=== PATIENT | male | born 1975 | race Caucasian/White ===

== ENCOUNTER 2020-12-21 13:59 | Inpatient (IN) | payer OTHER ==
[~2020-12-21] VITALS: Ht 175.3 cm; Wt 65.4 kg
[~2020-12-21 13:59] MED LIST: IBUP400
[2020-12-21 14:27] LABS: BASOPHILS ABSOLUTE AUTO 0.04 K/mm3 (0.00-0.23); BASOPHILS PERCENT AUTO 1 % (0-2); EOSINOPHILS PERCENT AUTO 2 % (0-6); Hematocrit 35.5 % (37.0-53.0); Hemoglobin 11.6 g/dL (13.5-17.5); IMMATURE GRAN ABSOLUTE AUTO 0.03 K/mm3 (0.00-0.10); IMMATURE GRAN PERCENT AUTO 1 % (0-1); LYMPHOCYTES ABSOLUTE AUTO 1.57 K/mm3 (0.84-5.20); LYMPHOCYTES PERCENT AUTO 27 % (21-46); MONOCYTES ABSOLUTE AUTO 0.64 K/mm3 (0.16-1.47); MONOCYTES PERCENT AUTO 11 % (4-13); Mean Corpuscular HGB Conc 32.7 g/dL (31.5-36.5); Mean Corpuscular Volume 95 fL (80-100); Mean Platelet Volume 11.3 fL (9.1-12.4); NEUTROPHILS ABSOLUTE AUTO 3.55 K/mm3 (1.96-9.15); NEUTROPHILS PERCENT AUTO 60 % (41-73); Platelet Count 157 K/mm3 (150-400); RDW Coefficient Variation 12.9 % (11.7-14.2); RDW Standard Deviation 45.2 fL (35.1-46.3); Red Blood Cell Count 3.74 M/mm3 (4.30-5.90); White Blood Cell Count 5.93 K/mm3 (4.00-11.30)
[2020-12-21 14:57] LABS: Alanine Aminotransfer (ALT/SGP 77 U/L (12-78); Albumin, Blood 3.1 g/dL (3.4-5.0); Albumin/Globulin Ratio 0.6 (0.8-1.8); Alk Phos 131 U/L (50-136); Anion Gap 11 mmol/L (6-16); Aspartate Aminotrans (AST/SGOT 118 U/L (12-37); Blood Urea Nitrogen 16 mg/dL (8-24); Bun/Creatinine Ratio 23.6 (12.0-20.0); CO2, Blood 21 mmol/L (21-32); Calcium, Blood 9.8 mg/dL (8.5-10.1); Chloride, Blood 100 mmol/L (98-108); Creatinine, Blood 0.68 mg/dL (0.60-1.20); Globulin, Blood 4.8 g/dL (2.2-4.0); Glomerular Filtration Rate >60 (60-); Glucose, Blood 109 mg/dL (70-99); Potassium, Blood 3.5 mmol/L (3.5-5.5); Sodium, Blood 132 mmol/L (136-145); Total Protein, Blood 7.9 g/dL (6.4-8.2)
--- NOTE | 2020-12-21 18:54 | NUR ---
RECEIVED REPORT FROM BRET JUAN, IN ED AT 1530. PT ARRIVED AT 1750 AND UNDERGOING ALCOHOL WITHDRAWL. PT WAS EXTREMELY AGITATED, HALLUCINATING, AND COMBATIVE. SPEECH IS NONSENSICAL AND HE IS A&O TO SELF ONLY. UNABLE TO FOLLOW ANY COMMANDS. HE ARRIVED ON 0.4MCG/KG/HR OF PRECEDEX AND NS 200ML/HR. ATIVAN 4MG IV X2, WITH MINIMAL RESPONSE. PRECEDEX GTT INCREASED TO 0.7MCG/KG/HR, AND PT STILL CONTINUES TO BE VERY AGITATED, COMBATIVE AND CONFUSED. CALL PLACED TO DR. RENO AND ORDERS GIVEN TO INCREASE PRECEDEX GTT TO 1.4MCG/KG/HR. 16F CATHETER PLACED, UA AND TOX SCREEN SENT. JASON VEST AND SWR PLACED PT IS AT RISK OF PULLING IV LINES AND CATHETER. HE IS CURRENTLY RESTING WELL AT THIS TIME. WILL REPORT TO ONCOMING SHIFT.
[2020-12-21 19:16] LABS: Source, Urine Catheter
[2020-12-21 19:19] LABS: Appearance, Urine Clear (Clear); Bilirubin, Urine Neg (Neg); Blood, Urine 5+ (Neg); Color, Urine Yellow (P-Yellow); Glucose Qualitative, Urine Neg (Neg); Ketones, Urine Neg (Neg); Leukocyte Esterase, Urine Neg (Neg); Nitrite, Urine Neg (Neg); Protein, Urine Neg (Neg); Urobilinogen, Urine NORM (Normal)
[2020-12-21 19:34] LABS: Squamous Epithelial Cells Few /hpf (Few)
[2020-12-21 19:35] LABS: Bacteria Few /hpf
[2020-12-21 19:47] LABS: U Amphetamine Screen Not Detected; U Barbituate Screen Not Detected; U Benzodiazapine Screen DETECTED; U Buprenorphine Screen Not Detected; U Cannabinoids Screen Not Detected; U Cocaine Screen Not Detected; U Methadone Screen Not Detected; U Methamphetamine Screen Not Detected; U Opiates Screen Not Detected; U Oxycodone Screen Not Detected; U Phencyclidine Screen Not Detected; U Propoxyphene Screen Not Detected
[2020-12-21] MEDS ORDERED: CEPH500 PO (22:03)
[2020-12-21] MEDS ORDERED: MULVITA PO (22:04)
[2020-12-21] MEDS ORDERED: FOLIC ACID0.4 MG PO (22:04)
[2020-12-21] MEDS ORDERED: B-1100 M1 PO (22:04)
[2020-12-21] MEDS ORDERED: MELATONIN5 M1 PO (22:04)
[2020-12-22 03:51] LABS: BASOPHILS ABSOLUTE AUTO 0.04 K/mm3 (0.00-0.23); BASOPHILS PERCENT AUTO 1 % (0-2); EOSINOPHILS ABSOLUTE AUTO 0.16 K/mm3 (0.00-0.68); EOSINOPHILS PERCENT AUTO 4 % (0-6); Hematocrit 37.3 % (37.0-53.0); IMMATURE GRAN ABSOLUTE AUTO 0.01 K/mm3 (0.00-0.10); IMMATURE GRAN PERCENT AUTO 0 % (0-1); LYMPHOCYTES ABSOLUTE AUTO 1.32 K/mm3 (0.84-5.20); LYMPHOCYTES PERCENT AUTO 30 % (21-46); MONOCYTES ABSOLUTE AUTO 0.35 K/mm3 (0.16-1.47); MONOCYTES PERCENT AUTO 8 % (4-13); Mean Corpuscular HGB 31.4 pg (26.0-34.0); Mean Corpuscular HGB Conc 32.2 g/dL (31.5-36.5); Mean Corpuscular Volume 98 fL (80-100); Mean Platelet Volume 11.3 fL (9.1-12.4); NEUTROPHILS ABSOLUTE AUTO 2.52 K/mm3 (1.96-9.15); NEUTROPHILS PERCENT AUTO 57 % (41-73); Platelet Count 129 K/mm3 (150-400); RDW Coefficient Variation 12.8 % (11.7-14.2); RDW Standard Deviation 45.9 fL (35.1-46.3); Red Blood Cell Count 3.82 M/mm3 (4.30-5.90)
[2020-12-22 04:09] LABS: Alanine Aminotransfer (ALT/SGP 82 U/L (12-78); Albumin, Blood 2.7 g/dL (3.4-5.0); Albumin/Globulin Ratio 0.6 (0.8-1.8); Alk Phos 117 U/L (50-136); Anion Gap 6 mmol/L (6-16); Aspartate Aminotrans (AST/SGOT 123 U/L (12-37); Bilirubin, Total 0.7 mg/dL (0.1-1.0); Blood Urea Nitrogen 8 mg/dL (8-24); Bun/Creatinine Ratio 18.6 (12.0-20.0); CO2, Blood 24 mmol/L (21-32); Calcium, Blood 7.9 mg/dL (8.5-10.1); Chloride, Blood 107 mmol/L (98-108); Creatinine, Blood 0.43 mg/dL (0.60-1.20); Globulin, Blood 4.6 g/dL (2.2-4.0); Glomerular Filtration Rate >60 (60-); Glucose, Blood 156 mg/dL (70-99); Magnesium, Blood 2.1 mg/dL (1.6-2.4); Potassium, Blood 3.1 mmol/L (3.5-5.5); Sodium, Blood 137 mmol/L (136-145); Total Protein, Blood 7.3 g/dL (6.4-8.2)
--- NOTE | 2020-12-22 08:51 | NUR ---
ASSUMED PT CARE THIS AM. PT A/O TO SELF ONLY, AGITATED AND CURSING WHEN AWAKE OR STIMULATED. PRECEDEX AT 0.7MCG/KG/HR; PT RESTING BETWEEN CARES. VSS EXCEPT HR BRADYCARDIC SB 45-60, BP STABLE. PT HAS WET PRODUCTIVE COUGH, ORAL CARE PROVIDED. RESTRAINTS IN PLACE FOR SAFETY. K BEING REPLACED. NS AT 100ML/HR, FC INTACT AND PATENT DRAINING CLEAR YELLOW URINE. PT NPO. PT'S FATHER AND MOTHER UPDATED VIA PHONE.
--- NOTE | 2020-12-22 17:46 | NUR ---
SHIFT SUMMARY PT A/O TO SELF ONLY THROUGHOUT SHIFT. AT BEG OF SHIFT PT WAS AGITATED, CURSING, AND HALLUCINATING, PRECEDEX AT 0.7 TITRATING OFF TO SB AT APPROX 1630. PT GIVEN ATIVAN 2MG IV Q 4 HRS FOR CIWA 11; CIWA DOWN TO 8 AT END OF SHIFT. HR SB 40-60, BP STABLE, AFEBRILE, SATS 92% AND GREATER ON RA. PT HAS HACKING PRODUCTIVE COUGH, ASSISTED TO USE YANKAUER NEEDED. FC WITH 1200 UO, NO BM. RESTRAINTS IN PLACE TO B WRISTS FOR SAFETY SECONDARY TO ALOC. PT HAS BECOME MORE CALM AND COHERENT BY END OF SHIFT ALTHOUGH STILL CONFUSED DESPITE REORIENTATION. PT'S FAMILY UPDATED ON PHONE.
[2020-12-23 03:56] LABS: Hematocrit 35.3 % (37.0-53.0); Hemoglobin 11.5 g/dL (13.5-17.5); Mean Corpuscular HGB 31.5 pg (26.0-34.0); Mean Corpuscular HGB Conc 32.6 g/dL (31.5-36.5); Mean Corpuscular Volume 97 fL (80-100); Platelet Count 135 K/mm3 (150-400); RDW Coefficient Variation 12.6 % (11.7-14.2); RDW Standard Deviation 44.7 fL (35.1-46.3); Red Blood Cell Count 3.65 M/mm3 (4.30-5.90); White Blood Cell Count 4.82 K/mm3 (4.00-11.30)
[2020-12-23 04:26] LABS: Alanine Aminotransfer (ALT/SGP 111 U/L (12-78); Albumin, Blood 2.5 g/dL (3.4-5.0); Albumin/Globulin Ratio 0.6 (0.8-1.8); Alk Phos 128 U/L (50-136); Anion Gap 7 mmol/L (6-16); Aspartate Aminotrans (AST/SGOT 148 U/L (12-37); Bilirubin, Total 0.4 mg/dL (0.1-1.0); Blood Urea Nitrogen 10 mg/dL (8-24); Bun/Creatinine Ratio 15.5 (12.0-20.0); CO2, Blood 24 mmol/L (21-32); Calcium, Blood 8.4 mg/dL (8.5-10.1); Chloride, Blood 104 mmol/L (98-108); Creatinine, Blood 0.65 mg/dL (0.60-1.20); Ferritin, Serum 225 ng/mL (26-388); Globulin, Blood 4.1 g/dL (2.2-4.0); Glomerular Filtration Rate >60 (60-); Glucose, Blood 125 mg/dL (70-99); Iron Serum 16 ug/dL (65-175); Percent Saturation 6.3 % (20.0-50.0); Potassium, Blood 3.8 mmol/L (3.5-5.5); Sodium, Blood 135 mmol/L (136-145); Total Iron Binding Capacity 254 ug/dL (250-450); Total Protein, Blood 6.6 g/dL (6.4-8.2)
--- NOTE | 2020-12-23 14:23 | NUR ---
PT DOING WELL TODAY. A/O TO SELF, HOSPITAL, COOPERATIVE AND ENGAGED WITH CARE. CIWA SCORES 8-10, ATIVAN GIVEN PRN. VSS. PT UP TO CHAIR WITH 2 PERSON ASSIST, TOELRATED WELL. EATING WITHOUT ISSUE. MD CALLED AND INFORMED OF PT PROGRESS, STATES SHE WILL BE BY SOON TO ASSESS AND UPDATE POC. FC REMOVED, PT NOW USING URINAL.
--- NOTE | 2020-12-23 18:44 | NUR ---
SHIFT SUMMARY PT A/OX2-3, COOPERATIVE AND CALM WITH CARE. ATIVAN 2 MG GIVEN APPROX Q 4 FOR CIWA SCORES. VSS. FC DC. IN TO SEE PT, ORDERS WRITTEN FOR MED STATUS NO TELE. PT UP TO CHAIR WITH 2 PERSON ASSIST (WEAKNESS/TREMORS) FOR 3 HOURS TODAY.
--- NOTE | 2020-12-23 20:56 | NUR ---
PT ARRIVED TO THE FLOOR AT APPROX 2024. A/OX3. CIWA SCORE OF 4. CALL LIGHT GIVEN AND ORIENTED TO ROOM. NO BELONGINGS BROUGHT WITH PT. VITALS TAKEN AT THAT TIME.
--- NOTE | 2020-12-24 03:31 | NUR ---
SHIFT SUMMARY PT ARRIVED TO THE FLOOR AT APPROX 2029. SINCE ARRIVING TO THE FLOOR PT HAS BEEN A/OX3 AND HAS HAD LOW CIWA SCORES. PT REPORTED NAUSEA X1 THIS SHIFT BUT IT WAS RESOLVED WITH CRACKERS AND EDIL MIST HE LOST IV ACCESS ONCE TRANSFERED OVER. PT HAS BEEN COOPERATIVE AND PLEASENT THIS SHIFT. VOIDING WELL. PT APPEARS TO BE SLEEPING COMFORTABLY. WILL REPORT TO ONCOMING RN.
--- NOTE | 2020-12-24 14:15 | NUR ---
SHIFT SUMMARY: PATIENT ALERT AND ORIENTED, DOZING AT TIMES. STATES "I FEEL FINE". COMPLETE LINEN CHANGE DONE AND GOWN, NOTED SOME URINE SPILLED IN THE BED. PT. IS VOIDING WELL AND INSTRUCTED TO CALL FOR NURSE TO EMPTY URINAL AND/OR ASSIST TO BATHROOM. PT. DID AMBUALTE IN GARCIA TODAY GREATER THAN 300 FEET. TOLERATE WELL USING WALKER, WAS MILDLY UNSTEADY WITHOUT WALKER. REPORT HAVING BM WHEN IN BR. APPETITE IS GOOD, EATING 100% AT MEALS AND REQUEST SNACKS. DENIES NAUSEA, DENIES PAIN. ENCOURAGED TO USE CALL LIGHT FOR ANY NEEDS, COMPLAINT, CONCERNS. CIWA SCORE=1
[2020-12-25 04:10] LABS: Hematocrit 37.1 % (37.0-53.0); Hemoglobin 12.1 g/dL (13.5-17.5); Mean Corpuscular HGB 31.6 pg (26.0-34.0); Mean Corpuscular HGB Conc 32.6 g/dL (31.5-36.5); Mean Corpuscular Volume 97 fL (80-100); Mean Platelet Volume 11.1 fL (9.1-12.4); Platelet Count 155 K/mm3 (150-400); RDW Coefficient Variation 12.6 % (11.7-14.2); RDW Standard Deviation 44.7 fL (35.1-46.3); Red Blood Cell Count 3.83 M/mm3 (4.30-5.90); White Blood Cell Count 5.72 K/mm3 (4.00-11.30)
[2020-12-25 04:46] LABS: Alanine Aminotransfer (ALT/SGP 154 U/L (12-78); Albumin, Blood 2.8 g/dL (3.4-5.0); Albumin/Globulin Ratio 0.6 (0.8-1.8); Alk Phos 113 U/L (50-136); Anion Gap 5 mmol/L (6-16); Aspartate Aminotrans (AST/SGOT 126 U/L (12-37); Bilirubin, Total 0.4 mg/dL (0.1-1.0); Blood Urea Nitrogen 8 mg/dL (8-24); Bun/Creatinine Ratio 11.9 (12.0-20.0); CO2, Blood 25 mmol/L (21-32); Calcium, Blood 9.1 mg/dL (8.5-10.1); Chloride, Blood 105 mmol/L (98-108); Creatinine, Blood 0.67 mg/dL (0.60-1.20); Globulin, Blood 4.6 g/dL (2.2-4.0); Glomerular Filtration Rate >60 (60-); Glucose, Blood 124 mg/dL (70-99); Potassium, Blood 3.8 mmol/L (3.5-5.5); Sodium, Blood 135 mmol/L (136-145); Total Protein, Blood 7.4 g/dL (6.4-8.2)
--- NOTE | 2020-12-25 06:40 | NUR ---
PT HAD UNEVENTFUL NIGHT; VSS. CIWA 0. PT PLEASANT AND COOPERATIVE, HAL REG PO, NO C/O N/V, IS VOIDING W/O DIFFICULTY. AWAITING DC PLANNING.
--- NOTE | 2020-12-25 15:29 | NUR ---
PT. DISCHARGED TO [facility], VIA [facility]. PERSONAL BELONGINGS FROM [employer] GIVEN AND SHOES SUPPLIED.DISCHARGE INSTRUCTIONS GIVEN AND PT. VERBALIZE UNDERSTANDING TO NET APPLICATIONS DEVELOPER [employer] PRESCRIPTION CALLED TO [facility] IN [facility]. [place] [id number] THIS A.M.-W/C TO EXIT.
== END 2020-12-25 15:10 | disposition home or self-care (01) | DRG 896 ==
LOC: ER 13:59 → ICUE 15:56 → ICUW 15:56 → ICUE 16:34 → SURS 17:55 → ICUE 12-23 17:12 → SURS 12-23 20:37
PROVIDERS: Emergency Medicine; ADMIT Internal Medicine
DX: F10.231 Alcohol dependence with withdrawal delirium (principal); G93.41 Metabolic encephalopathy; E87.1 Hypo-osmolality and hyponatremia; R79.89 Other specified abnormal findings of blood chemistry; D64.9 Anemia, unspecified
CPT/HCPCS: 36415; 51702; 80053; 81001; 82140; 82728; 83540; 83550; 83690; 83735; 84443; 85025; 85027; 93005; 93010; 94760; 96365; 96375; 99285-25; A9270; G0480; J1650; J2060; J2405; J3411; J3475; J3480; J7030; J7042; J7050